=== PATIENT | male | born 1975 ===

== ENCOUNTER 2021-08-21 01:59 | Emergency (ER) | payer OTHER ==
[2021-08-21] MEDS ORDERED: CYCLOBENZAPRINE10 MG PO (07:48)
[2021-08-21] MEDS ORDERED: NAPROXEN500 MG PO (07:48)
[2021-08-21] MEDS ORDERED: NORCO 5-325 TA1 EACH PO (07:48)
== END 2021-08-21 09:03 | disposition home or self-care (01) ==
LOC: FER 01:59
DX: S02.2XXA Fracture of nasal bones, initial encounter for closed fracture (principal); S13.4XXA Sprain of ligaments of cervical spine, initial encounter; S23.3XXA Sprain of ligaments of thoracic spine, initial encounter; S33.5XXA Sprain of ligaments of lumbar spine, initial encounter; Z88.0 Allergy status to penicillin; V48.5XXA Car driver injured in noncollision transport accident in traffic accident, initial encounter; Y92.410 Unspecified street and highway as the place of occurrence of the external cause
CPT/HCPCS: 70450; 72125; 72128; 72131; J7030